=== PATIENT | male | born 1995 | race Caucasian/White ===

== ENCOUNTER 2023-05-19 16:51 | Emergency (ER) | payer BC, SELFPAY ==
[2023-05-19] VITALS (8 sets, daily range): BP systolic 116–135; BP diastolic 70–84; PULSE 64–77; RESP 14–18; TEMP 36.7–36.9; O2SAT 93–96; BMI 19.6
--- NOTE | 2023-05-19 17:14 | DI.RAD.S_ITS ---
PROCEDURE: XR CHEST 1V INDICATIONS: Shortness of breath TECHNIQUE: One view of the chest was acquired. COMPARISON: None. FINDINGS: Surgical changes and devices: Partially evaluated lower cervical spinal hardware. Lungs and pleura: Lungs are clear. No pleural effusions or pneumothorax. Mediastinum: Mediastinal contours appear normal. Heart size is normal. Bones and chest wall: No suspicious bony lesions. Overlying soft tissues appear unremarkable. IMPRESSION: No acute cardiopulmonary abnormality is seen. Dictated by: Evi Sanches M.D. on 05/19/2023 at 18:08 Approved by: Evi Sanches M.D. on 05/19/2023 at 18:09
[2023-05-19 18:43] LABS: Add Manual Diff / Slide Review NO; Basophils Absolute Auto 100 /uL (0-100); Basophils Percent Auto 0.8 % (0-2); Eosinophils Absolute Auto 100 /uL (0-450); Eosinophils Percent Auto 1.3 % (2-4); Hematocrit 27.2 % (41-53); Hemoglobin 9.2 g/dL (13.5-17.5); Lymphocytes Absolute Auto 1700 /uL (1100-4500); Lymphocytes Percent Auto 15.1 % (25-40); Mean Corpuscular HGB Conc 33.7 % (30-36); Mean Corpuscular Hemoglobin 29.5 PG (26-34); Mean Corpuscular Volume 87.7 fL (80-100); Monocytes Absolute Auto 1100 /uL (0-900); Monocytes Percent Auto 9.4 % (3-14); Neutrophils Absolute Auto 8400 /uL (1500-7000); Neutrophils Percent Auto 73.4 % (50-75); Platelet Count 231 X10^3/uL (150-400); Red Blood Cell Count 3.11 X10^6/uL (4.5-5.9); Red Cell Distribution Width 15.1 % (11.6-14.8); White Blood Cell Count 11.5 X10^3/uL (4.5-11.0)
[2023-05-19 18:54] LABS: Lactate (Lactic Acid) 0.8 mmol/L (0.7-2.1)
[2023-05-19 18:56] LABS: Alanine Aminotransferase 87 IU/L (<50); Albumin 4.1 g/dL (3.5-5.0); Albumin Globulin Ratio 1.1 (1.0-2.8); Alkaline Phosphatase 85 U/L (38-126); Aspartate Aminotransferase 42 IU/L (17-59); BUN Creatinine Ratio 87.1 (6-22); Bilirubin Total 0.8 mg/dL (0.2-1.3); Blood Urea Nitrogen 27 mg/dL (9-20); Calcium 10.9 mg/dL (8.4-10.2); Carbon Dioxide 29 mmol/L (22-32); Chloride 98 mmol/L (98-107); Estimated Glomerular Filt Rate > 60 mL/min (>60); Globulin 3.6 g/dL (1.7-4.1); Glucose 87 mg/dL (70-100); HEMOLYSIS < 15 (0-50); Potassium 4.2 mmol/L (3.4-5.1); Sodium 135 mmol/L (137-145); Total Protein 7.7 g/dL (6.3-8.2)
[2023-05-19 19:11] LABS: Adenovirus Not Detected (Not Detect); B. parapertussis Not Detected (Not Detecte); Bordetella pertussis Not Detected (Not Detect); Chlamydophila pneumoniae Not Detected (Not Detect); Coronavirus 229E Not Detected (Not Detect); Coronavirus HKU1 Not Detected (Not Detect); Coronavirus NL 63 Not Detected (Not Detect); Coronavirus OC43 Not Detected (Not Detect); Human Metapneumovirus Not Detected (Not Detect); Human Rhinovirus/Enterovirus Not Detected (Not Detect); Influenza A Not Detected (Not Detect); Influenza B Not Detected (Not Detect); Mycoplasma pneumoniae Not Detected (Not Detect); Parainfluenza Virus 1 Not Detected (Not Detect); Parainfluenza Virus 2 Not Detected (Not Detect); Parainfluenza Virus 3 Not Detected (Not Detect); Parainfluenza Virus 4 Not Detected (Not Detect); Respiratory Syncytial Virus Not Detected (Not Detect); SARS- CoV-2 Not Detected (Not Detecte)
[2023-05-19] MEDS: cefUROXime 250 MG TABLET 500 MG PO (21:18)
--- NOTE | 2023-05-20 01:26 | ED_ITS ---
HPI - SOB/Dyspnea General Chief Complaint: Shortness of Breath/Dyspnea Stated Complaint: pos pneumonia T-5 SOB Time Seen by Provider: 05/19/23 17:22 Source: patient Mode of arrival: Wheelchair Limitations: physical limitation History of Present Illness HPI Narrative: The patient is a 20-year-old male with a history of traumatic paraplegia for spinal cord injury in anticoagulated for previous pulmonary embolism who is here with about 5 days of fevers chills increased sputum production and cough. He also reports feeling short of breath. He is not had any vomiting, family is concerned about the possibility of aspiration, his mother is present and contributes to the history. Has an indwelling catheter, is not having abdominal pain no changes in bowel habits. Had a low-grade fever of about 101 this morning. Has had increased sputum production with change in sputum color becoming dark. He is also reporting a sore throat although he described it as mild. Related Data Home Medications Medication Instructions Recorded Confirmed CA PANTOTHENATE/FOLIC ACID/VIT 1 tab PO Q DAY ##0 07/16/11 (MULTIVITAMIN) cetirizine 10 mg tablet 10 mg PO Q DAY PRN ##0 07/16/11 Previous Rx's Medication Instructions Recorded cefuroxime axetil 500 mg tablet 500 mg PO BID #10 tabs 05/19/23 Allergies Allergy/AdvReac Type Severity Reaction Status Date / Time PENICILLIN Allergy Mild FAMILY HAS Uncoded 09/07/17 13:06 PCN ALLERGY, UNKNOWN IF PT. DOES Exam Initial Vital Signs Initial Vital Signs: Vital Signs Temperature 98.0 F 05/19/23 16:59 Pulse Rate 72 05/19/23 16:59 Respiratory Rate 14 05/19/23 16:59 Blood Pressure 116/70 05/19/23 16:59 Pulse Oximetry 95 05/19/23 16:59 Oxygen Delivery Method Room Air 05/19/23 16:59 Const Other: Young thin male with quadriplegia, seated in a wheelchair he has significant upper and lower extremity muscle wasting Deluca catheter in place draining rodney colored urine. He is alert oriented and in no distress. HENMT Head: normocephalic and atraumatic Neck Neck: supple and No lymphadenopathy Other: Voice is normal. Resp Other: Patient appears to have diaphragmatic paralysis secondary to spinal cord injury, inspiratory effort appears to be adequate. Has coarse breath sounds bilaterally no wheezes breath sounds are equal bilaterally Cardio Rate: regular rate Rhythm: regular rhythm Heart Sounds: S1 normal, S2 normal and no murmurs Skin General: dry skin and warm Neuro Other: Alert and oriented, upper extremity weakness and muscle wasting consistent with his previous spinal cord injury lower extremities are paralyzed Course Orders Ordered: ED Orders 05/19/23 17:14 XR chest 1V Stat Measure peak expiratory flow ONCE RT Consult Eval and Treat NOW 05/19/23 18:22 Respiratory Panel (Film Array) Stat 05/19/23 18:30 Complete Blood Count AUTO DIFF Stat Comprehensive Metabolic Panel Stat Lactate (Lactic Acid) Stat Discontinued Medications Cefuroxime Axetil (Cefuroxime 250 Mg Tablet) 500 mg PO NOW ONE Stop: 05/19/23 21:10 Last Admin: 05/19/23 21:18 Dose: 500 mg Documented By: STEVE Vital Signs Vital signs: Vital Signs - 8 hr 05/19/23 18:09 05/19/23 18:30 05/19/23 19:00 Temperature Pulse Rate 69 65 77 Respiratory Rate Blood Pressure Pulse Oximetry 95 93 95 05/19/23 19:30 05/19/23 20:00 05/19/23 20:30 Temperature Pulse Rate 69 64 71 Respiratory Rate 18 Blood Pressure Pulse Oximetry 96 96 96 05/19/23 21:00 Temperature 98.5 F Pulse Rate 75 Respiratory Rate 18 Blood Pressure 135/84 Pulse Oximetry 94 MDM - SOB/Dyspnea Lab Data Lab results narrative: CBC shows a minimal elevation of WBC at 11.5. Chemistries are unremarkable, lactic is normal. 05/19/23 18:30 05/19/23 18:30 Labs: Lab Results 05/19/23 05/19/23 Range/Units 18:22 18:30 WBC 11.5 H (4.5-11.0) X10^3/uL RBC 3.11 L (4.5-5.9) X10^6/uL Hgb 9.2 L (13.5-17.5) g/dL Hct 27.2 L (41-53) % MCV 87.7 (80-100) fL MCH 29.5 (26-34) PG MCHC 33.7 (30-36) % RDW 15.1 H (11.6-14.8) % Plt Count 231 (150-400) X10^3/uL Neut % (Auto) 73.4 (50-75) % Lymph % (Auto) 15.1 L (25-40) % [place] % (Auto) 9.4 (3-14) % Eos % (Auto) 1.3 L (2-4) % Baso % (Auto) 0.8 (0-2) % Neut # (Auto) 8400 H (2780-8756) /uL Lymph # (Auto) 1700 (1819-7024) /uL [place] # (Auto) 1100 H (0-900) /uL Eos # (Auto) 100 (0-450) /uL Baso # (Auto) 100 (0-100) /uL Sodium 135 L (137-145) mmol/L Potassium 4.2 (3.4-5.1) mmol/L Chloride 98 (98-107) mmol/L Carbon Dioxide 29 (22-32) mmol/L BUN 27 H (9-20) mg/dL Creatinine 0.31 L (0.66-1.25) mg/dL Estimated GFR > 60 (>60) mL/min BUN/Creatinine Ratio 87.1 H (6-22) Glucose 87 (70-100) mg/dL Lactate 0.8 (0.7-2.1) mmol/L Calcium 10.9 H (8.4-10.2) mg/dL Total Bilirubin 0.8 (0.2-1.3) mg/dL AST 42 (17-59) IU/L ALT 87 H (<50) IU/L Alkaline Phosphatase 85 (38-126) U/L Troponin I Cancelled NT-Pro-B Natriuret Pep Cancelled Total Protein 7.7 (6.3-8.2) g/dL Albumin 4.1 (3.5-5.0) g/dL Globulin 3.6 (1.7-4.1) g/dL Albumin/Globulin Ratio 1.1 (1.0-2.8) Chlamy pneumoniae PCR Not detected (Not Detect) Adenovirus (PCR) Not detected (Not Detect) B.parapertussis DNA PCR Not detected (Not Detecte) Coronavirus OC43 (PCR) Not detected (Not Detect) Coronavirus HKU1 (PCR) Not detected (Not Detect) Coronavirus 229E (PCR) Not detected (Not Detect) SARS-CoV-2 (PCR) Not detected (Not Detecte) Coronavirus NL63 (PCR) Not detected (Not Detect) Human Metapneumovir PCR Not detected (Not Detect) Influenza Type A (PCR) Not detected (Not Detect) Influenza Type B (PCR) Not detected (Not Detect) M. pneumoniae (PCR) Not detected (Not Detect) Parainfluenza 1 (PCR) Not detected (Not Detect) Parainfluenza 2 (PCR) Not detected (Not Detect) Parainfluenza 3 (PCR) Not detected (Not Detect) Parainfluenza 4 (PCR) Not detected (Not Detect) RSV (PCR) Not detected (Not Detect) Entero/Rhino (PCR) Not detected (Not Detect) Imaging Data Chest x-ray: My Impression: No acute infiltrate on my independent review of chest x-ray Radiologist's Impression: IMPRESSION: No acute cardiopulmonary abnormality is seen. MDM Narrative Medical decision making narrative: 20-year-old male with a history of spinal cord injury and subsequently quadriplegia. He is here with a low-grade fever, and respiratory symptoms. Differential includes pneumonia, bacterial versus viral, I considered the possibility of pulmonary embolism however he is anticoagulated and has clear infectious symptoms. He is not hypoxic or tachycardic. It does not appear to be septic. Urinary tract infection is possible he has an indwelling catheter however not having abdominal discomfort and urine appeared clear. There does not appear to be a viral etiology, given his increased sputum production recently in changes sputum color I did cover him with oral cefuroxime. Discharge Plan Departure Patient Disposition: Home Clinical Impression: Bronchitis Activity Restrictions/Additional Instructions: I am prescribing antibiotics today for a respiratory infection without a pneumonia seen on chest x-ray. Continue other previous home medications. Give the prescribed cefuroxime twice daily for 5 days. If having increasing shortness of breath frequent vomiting or other acute symptoms recheck in the emergency department. Follow up soon with primary care provider. Prescriptions: New cefuroxime axetil 500 mg tablet 500 mg PO BID Qty: 10 0RF No Action cetirizine 10 MG tablet 10 mg PO Q DAY PRNQty: 0 CA PANTOTHENATE/FOLIC ACID/VIT (MULTIVITAMIN) 1 tab PO Q DAY Qty: 0 Referrals: Jose J Lanza ARNP [Primary Care Provider] - Stand Alone Forms: Patient Portal/API
== END 2023-05-19 21:35 | disposition home or self-care (01) ==
PROVIDERS: Emergency Medicine; Emergency Provider Emergency Medicine; Family Provider Nurse Practitioner; PCP Nurse Practitioner
DX: J40 Bronchitis, not specified as acute or chronic (principal)
CPT/HCPCS: 71045; 80053; 83605; 85025; 87633; 99283; 99284

== ENCOUNTER 2023-06-12 17:17 | Inpatient (IN) | payer BC, SELFPAY ==
[2023-06-12] VITALS (13 sets, daily range): BP systolic 76–121; BP diastolic 36–64; PULSE 88–119; RESP 18–39; TEMP 36.8–37.1; O2SAT 87–97; BMI 19.0
--- NOTE | 2023-06-12 17:27 | DI.RAD.S_ITS ---
PROCEDURE: XR CHEST 1V INDICATIONS: SOB TECHNIQUE: One view of the chest was acquired. COMPARISON: [facility], CR, XR CHEST 1V, 05/19/2023, 17:33. FINDINGS: Surgical changes and devices: None. Lungs and pleura: Right lower lobe opacity. No pleural effusion. No pneumothorax. Mediastinum: Mediastinal contours appear normal. Heart size is normal. Bones and chest wall: No suspicious bony lesions. Overlying soft tissues appear unremarkable. IMPRESSION: Right lower lobe opacity concerning for infection. Dictated by: Ra Bennett M.D. on 06/12/2023 at 17:29 Approved by: Ra Bennett M.D. on 06/12/2023 at 17:35
--- NOTE | 2023-06-12 17:50 | PC.NURSE ---
Pt arrives in electric wheelchair and was assisted into a ER gurney by using a nikkie lift. Pt's mom Aissatou at bedside and assisted with moving pt using nikkie lift and pad. Pt states he feels better when he is laying back in a 30 degree angle. He reports difficulty breathing, heart palpitations, fevers, and coughing with sputum production. Pt also concerned for bladder spasms the past week and being scheduled with his urologist for kidney stone removal. Pt
--- NOTE | 2023-06-12 18:00 | ED_ITS ---
HPI - SOB/Dyspnea General Chief Complaint: Shortness of Breath/Dyspnea Stated Complaint: LOW OXYGEN, HIGH PULSE, FEVER, Time Seen by Provider: 06/12/23 17:26 Source: patient and family Mode of arrival: Wheelchair Limitations: physical limitation History of Present Illness HPI Narrative: Patient is a 28-year-old male history of quadriplegia C4-C5 level secondary to trauma spinal cord injury, on Eliquis for prior pulmonary embolism presents today with increasing shortness of breath. He reports that he was okay last night but maybe did not feel great. Today around 2:00 a.m. while sitting in his chair he had some difficulty breathing. It was little bit better when he laid down. They monitor his oxygen as needed both mom and patient report that his oxygen level went into the 80s for about 5 minutes and then came up. He does have some sputum and secretions. He is NPO and has a PEG tube. He takes Tylenol around the clock they have not noted any fever. No nausea or vomiting. He is not having any chest pain now. He feels like he is doing better than he was earlier. Related Data Home Medications Medication Instructions Recorded Confirmed CA PANTOTHENATE/FOLIC ACID/VIT 1 tab PO Q DAY ##0 07/16/11 (MULTIVITAMIN) cetirizine 10 mg tablet 10 mg PO Q DAY PRN ##0 07/16/11 Previous Rx's Medication Instructions Recorded cefuroxime axetil 500 mg tablet 500 mg PO BID #10 tabs 05/19/23 Allergies Allergy/AdvReac Type Severity Reaction Status Date / Time amoxicillin Allergy Hives Verified 06/12/23 18:37 vancomycin AdvReac Mild Rash: Pt Verified 06/12/23 18:40 states he can tolerate vancomycin... See Comment PENICILLIN Allergy Mild FAMILY HAS Uncoded 09/07/17 13:06 PCN ALLERGY, UNKNOWN IF PT. DOES Patient History Social History Smoking Status: Unknown if ever smoked Smoking Status: Unknown if ever smoked alcohol intake frequency: other Substance Use Type: does not use Exam Initial Vital Signs Initial Vital Signs: Vital Signs Pulse Rate 94 H 06/12/23 17:38 Blood Pressure 108/61 06/12/23 17:38 Pulse Oximetry 92 06/12/23 17:38 GENERAL: 28-year-old male appears slightly pale no respiratory distress HEENT: Head atraumatic,EOMI, pupils reactive, face symmetric, moist mucous membranes CARDIOVASCULAR: Regular rate and rhythm without murmurs, rubs or gallops. RESPIRATORY: Breath sounds equal bilaterally, no wheezes rales or rhonchi. ABDOMEN: Soft, nontender. Normoactive bowel sounds all 4 quadrants. No guarding or rebound. Peg tube in place : Deluca catheter in place EXTREMITIES: Normal range of motion, no clubbing or edema. Neurovascularly intact NEUROLOGICAL: Alert and oriented x4. At baseline SKIN: Warm, dry, no laceration, no petechiae, no rashes or lesions. Course Orders Ordered: ED Orders 06/12/23 17:27 XR chest 1V Stat RT Consult Eval and Treat Now 06/12/23 17:52 Complete Blood Count AUTO DIFF Stat Comprehensive Metabolic Panel Stat Lactate (Lactic Acid) Stat Lipase Stat NT-proBNP (BNP-Adult 18+) Stat 06/12/23 17:58 Respiratory Panel (Film Array) Stat 06/12/23 18:10 Sputum Culture Stat 06/12/23 18:20 Blood Culture Stat 06/12/23 19:27 Urine Culture Stat Urine Microscopic Stat Enoxaparin Sodium (Enoxaparin 40 Mg/0.4 Ml Syringe) 40 mg SUBCUT DAILY AMELIA Ceftriaxone Sodium 1,000 mg/ (Sodium Chloride) 100 mls @ 200 mls/hr IV Q24H AMELIA Metronidazole (Flagyl) 500 mg in 100 mls @ 100 mls/hr IV Q8H AMELIA Naloxone HCl (Naloxone 0.4 Mg/Ml Vial) 0.2 mg IV Q2MIN PRN PRN Reason: Opiate Reversal Ondansetron HCl (Ondansetron 4 Mg/2 Ml Inj) 4 mg IV Q8HR PRN PRN Reason: Nausea And Vomiting Discontinued Medications Albuterol/Ipratropium (Albuterol/Ipratropium 3 Ml Ampul) 3 ml INH NOW ONE Stop: 06/12/23 18:16 Last Admin: 06/12/23 18:19 Dose: 3 ml Documented By: TIFFANI Ceftriaxone Sodium 2,000 mg/ (Sodium Chloride) 100 mls @ 200 mls/hr IV NOW ONE Stop: 06/12/23 18:59 Metronidazole (Flagyl) 500 mg in 100 mls @ 100 mls/hr IV NOW ONE Stop: 06/12/23 19:57 Sodium Chloride (Normal Saline 0.9%) 1,000 mls @ 1,000 mls/hr IV BOLUS ONE Stop: 06/12/23 20:05 Last Infusion: 06/12/23 20:30 Dose: Infused Documented By: Admin: 06/12/23 19:09 Dose: 1,000 mls/hr Documented By: FARSHAD Ceftriaxone Sodium 2,000 mg/ (Sodium Chloride) 100 mls @ 200 mls/hr IV NOW ONE Stop: 06/12/23 19:07 Last Infusion: 06/12/23 19:49 Dose: Infused Documented By: Admin: 06/12/23 19:29 Dose: 200 mls/hr Documented By: FARSHAD Metronidazole (Flagyl) 500 mg in 100 mls @ 100 mls/hr IV NOW ONE Stop: 06/12/23 20:05 Last Infusion: 06/12/23 20:10 Dose: Infused Documented By: Admin: 06/12/23 19:32 Dose: 100 mls/hr Documented By: FARSHAD Vital Signs Vital signs: Vital Signs - 8 hr 06/12/23 17:38 06/12/23 17:38 06/12/23 17:47 Temperature 98.7 F Pulse Rate 94 H 95 H Respiratory Rate 18 Blood Pressure 108/61 104/56 L Pulse Oximetry 92 93 Oxygen Delivery Method Room Air 06/12/23 18:00 06/12/23 18:00 06/12/23 18:30 Temperature Pulse Rate 93 H 88 Respiratory Rate Blood Pressure 110/62 Pulse Oximetry 93 97 Oxygen Delivery Method Room Air 06/12/23 18:30 06/12/23 19:00 06/12/23 19:00 Temperature Pulse Rate 106 H Respiratory Rate Blood Pressure 113/58 L 113/55 L Pulse Oximetry 91 Oxygen Delivery Method 06/12/23 19:30 06/12/23 19:30 06/12/23 19:34 Temperature Pulse Rate 101 H 119 H Respiratory Rate Blood Pressure 119/56 L Pulse Oximetry 93 92 Oxygen Delivery Method Room Air 06/12/23 19:34 06/12/23 19:37 06/12/23 19:37 Temperature Pulse Rate 115 H Respiratory Rate Blood Pressure 76/36 L 81/40 L Pulse Oximetry 87 L Oxygen Delivery Method 06/12/23 19:40 06/12/23 19:40 06/12/23 20:00 Temperature Pulse Rate 114 H 99 H Respiratory Rate 39 H 18 Blood Pressure 94/48 L 94/48 L Pulse Oximetry 91 91 Oxygen Delivery Method 06/12/23 20:00 06/12/23 20:30 06/12/23 20:30 Temperature Pulse Rate 98 H Respiratory Rate 23 Blood Pressure 107/56 L 121/64 Pulse Oximetry 93 94 Oxygen Delivery Method Room Air MDM - SOB/Dyspnea Lab Data 06/12/23 17:52 06/12/23 17:52 Labs: Lab Results 06/12/23 06/12/23 06/12/23 Range/Units 17:52 17:58 19:27 WBC 17.4 H (4.5-11.0) X10^3/uL RBC 3.55 L (4.5-5.9) X10^6/uL Hgb 10.5 L (13.5-17.5) g/dL Hct 31.4 L (41-53) % MCV 88.5 (80-100) fL MCH 29.7 (26-34) PG MCHC 33.6 (30-36) % RDW 14.4 (11.6-14.8) % Plt Count 155 (150-400) X10^3/uL Neut % (Auto) 81.8 H (50-75) % Lymph % (Auto) 6.8 L (25-40) % [place] % (Auto) 10.7 (3-14) % Eos % (Auto) 0.2 L (2-4) % Baso % (Auto) 0.5 (0-2) % Neut # (Auto) 42698 H (1377-3980) /uL Lymph # (Auto) 1200 (6285-7027) /uL [place] # (Auto) 1900 H (0-900) /uL Eos # (Auto) 0 (0-450) /uL Baso # (Auto) 100 (0-100) /uL Sodium 135 L (137-145) mmol/L Potassium 4.0 (3.4-5.1) mmol/L Chloride 99 (98-107) mmol/L Carbon Dioxide 26 (22-32) mmol/L BUN 28 H (9-20) mg/dL Creatinine 0.37 L (0.66-1.25) mg/dL Estimated GFR > 60 (>60) mL/min BUN/Creatinine Ratio 75.7 H (6-22) Glucose 100 (70-100) mg/dL Lactate 1.0 (0.7-2.1) mmol/L Calcium 11.3 H (8.4-10.2) mg/dL Total Bilirubin 0.7 (0.2-1.3) mg/dL AST 51 (17-59) IU/L ALT 157 H (<50) IU/L Alkaline Phosphatase 92 (38-126) U/L NT-Pro-B Natriuret Pep 85 (<125) pg/mL Total Protein 8.6 H (6.3-8.2) g/dL Albumin 4.6 (3.5-5.0) g/dL Globulin 4.0 (1.7-4.1) g/dL Albumin/Globulin Ratio 1.2 (1.0-2.8) Lipase 56 (23-300) U/L Urine RBC 30-100/hpf H (0-5/HPF) Urine WBC 5-10/hpf H (0-5/HPF) Ur Squamous Epith Cells None seen (0-5/HPF) Amorphous Sediment 2+ Urine Bacteria Moderate (10-30) H (None) Ur Culture Indicated? Specimen cultured Chlamy pneumoniae PCR Not detected (Not Detect) Adenovirus (PCR) Not detected (Not Detect) B.parapertussis DNA PCR Not detected (Not Detecte) Coronavirus OC43 (PCR) Not detected (Not Detect) Coronavirus HKU1 (PCR) Not detected (Not Detect) Coronavirus 229E (PCR) Not detected (Not Detect) SARS-CoV-2 (PCR) Not detected (Not Detecte) Coronavirus NL63 (PCR) Not detected (Not Detect) Human Metapneumovir PCR Not detected (Not Detect) Influenza Type A (PCR) Not detected (Not Detect) Influenza Type B (PCR) Not detected (Not Detect) M. pneumoniae (PCR) Not detected (Not Detect) Parainfluenza 1 (PCR) Not detected (Not Detect) Parainfluenza 2 (PCR) Not detected (Not Detect) Parainfluenza 3 (PCR) Not detected (Not Detect) Parainfluenza 4 (PCR) Not detected (Not Detect) RSV (PCR) Not detected (Not Detect) Entero/Rhino (PCR) Not detected (Not Detect) Urine Dip Bedside Urine Glucose Negative Bedside Urine Bilirubin - Negative Bedside Urine Ketone - Negative Urine Specific [place] 1.015 Bedside Urine Occult Blood +++ Bedside Urine pH 7.0 Bedside Urine Protein +/- 15 Bedside Urine Urobilinogen - Negative Bedside Urine Nitrite - Negative Bedside Urine Leukocytes +++ 500 Esterase Imaging Data Chest x-ray: Radiologist's Impression: PROCEDURE: XR CHEST 1V INDICATIONS: SOB TECHNIQUE: One view of the chest was acquired. COMPARISON: [facility], , XR CHEST 1V, 05/19/2023, 17:33. FINDINGS: Surgical changes and devices: None. Lungs and pleura: Right lower lobe opacity. No pleural effusion. No pneumothorax. Mediastinum: Mediastinal contours appear normal. Heart size is normal. Bones and chest wall: No suspicious bony lesions. Overlying soft tissues appear unremarkable. IMPRESSION: Right lower lobe opacity concerning for infection. Dictated by: Ra Bennett M.D. on 06/12/2023 at 17:29 MDM Narrative Medical decision making narrative: Patient 28-year-old male quadriplegic after traumatic injury presenting today with increased difficulty breathing. He started taking in liquids a couple tbsp at a time. He gets most of his nutrition through the PEG tube. He does have a very weak cough and uses a cough assist. Today felt like his oxygen decreased they do have an oxygen concentrator home which they never used but needed to use it today. Blood work has been: Leukocytosis 17.4 with left shift, sodium 135 BUN 28 creatinine 0.7,. Bilirubin 0.7, AST 51, ALT 157, lipase 66, respiratory panel negative, lactate 1.0 X-ray imaging reviewed right lower lobe pneumonia Patient coughed up copious amount of green productive sputum that was sent down for culture. There is concern for pneumonia based on history chest x-ray and white count. He is afebrile. He reports his heart rate is normally in the 50s to 60s he remains tachycardic 90s to 110 in the ED. oxygen level is lower than normal for him. He has oxygen level 91 to 93% he does go down into 80s at times not really requiring oxygen support. His blood pressure did drop briefly but he was being repositioned it quickly came back in to normal range. He is covered with Rocephin in Flagyl for aspiration pneumonia. He did get a little flushed in the face after the Rocephin. He has no difficulty swallowing no other hives. It does have an allergic reaction to penicillin which causes hives. He previously tolerated cefuroxime without any difficulty. Dr. Winters accepts patient. qSOFA (Quick SOFA) Score for Sepsis from [email or web address] on 06/12/2023 All calculations should be rechecked by clinician prior to use RESULT SUMMARY: 2 points qSOFA Score High risk qSOFA Scores 2-3 are associated with a 3- to 14-fold increase in in-hospital mortality. Assess for evidence of organ dysfunction with blood testing including serum lactate and calculation of the full SOFA Score. Patients meeting these qSOFA criteria should have infection considered even if it was previously not. INPUTS: Altered mental status ?> 0 = No Respiratory rate >=2 ?> 1 = Yes Systolic BP <=00 ?> 1 = Yes Discharge Plan Departure Patient Disposition: Admitted As Inpatient Clinical Impression: Aspiration pneumonia Admit Date/Time: 06/12/23 20:49 Admit Provider: Ruiz Goyal
[2023-06-12 18:15] LABS: Alanine Aminotransferase 157 IU/L (<50); Albumin 4.6 g/dL (3.5-5.0); Albumin Globulin Ratio 1.2 (1.0-2.8); Alkaline Phosphatase 92 U/L (38-126); Aspartate Aminotransferase 51 IU/L (17-59); BUN Creatinine Ratio 75.7 (6-22); Bilirubin Total 0.7 mg/dL (0.2-1.3); Blood Urea Nitrogen 28 mg/dL (9-20); Calcium 11.3 mg/dL (8.4-10.2); Carbon Dioxide 26 mmol/L (22-32); Chloride 99 mmol/L (98-107); Estimated Glomerular Filt Rate > 60 mL/min (>60); Glucose 100 mg/dL (70-100); HEMOLYSIS < 15 (0-50); Lipase 56 U/L (23-300); Sodium 135 mmol/L (137-145); Total Protein 8.6 g/dL (6.3-8.2)
[2023-06-12 18:17] LABS: Add Manual Diff / Slide Review NO; Basophils Absolute Auto 100 /uL (0-100); Basophils Percent Auto 0.5 % (0-2); Eosinophils Absolute Auto 0 /uL (0-450); Eosinophils Percent Auto 0.2 % (2-4); Hematocrit 31.4 % (41-53); Hemoglobin 10.5 g/dL (13.5-17.5); Lymphocytes Absolute Auto 1200 /uL (1100-4500); Lymphocytes Percent Auto 6.8 % (25-40); Mean Corpuscular HGB Conc 33.6 % (30-36); Mean Corpuscular Hemoglobin 29.7 PG (26-34); Mean Corpuscular Volume 88.5 fL (80-100); Monocytes Absolute Auto 1900 /uL (0-900); Monocytes Percent Auto 10.7 % (3-14); Neutrophils Absolute Auto 14200 /uL (1500-7000); Neutrophils Percent Auto 81.8 % (50-75); Platelet Count 155 X10^3/uL (150-400); Red Blood Cell Count 3.55 X10^6/uL (4.5-5.9); Red Cell Distribution Width 14.4 % (11.6-14.8); White Blood Cell Count 17.4 X10^3/uL (4.5-11.0)
[2023-06-12] MEDS: ALBUTEROL/IPRATROPIUM 3 ML AMPUL INH (18:19)
--- NOTE | 2023-06-12 18:19 | PC.NURSE ---
Patient and his mom present due to sudden onset of shortness of breath around 1400 today after being repositioned from laying in bed up to Pt's electric wheelchair. Pt reports feeling better when laying down (30degrees) and is feeling better now after being placed in the ER [place]. Pt had a 35ft fall in december of 2022 resulting in quadriplegia and was seen at [facility]. History of trachea placement and pt is attempting to avoid being placed back on trachea. He is NPO status and receiving tube feedings. Hx of aspiriations since trachea removed. Pt reports no new pain, but takes pain medications at home for chronic neck and generalized pain that he rates a 5/10. Pt right hand dominant but has little use over upper extremities. Pt denies any skin wounds, denies chest pain or dizziness.
[2023-06-12 18:23] LABS: NT-proBNP (BNP-Adult 18+) 85 pg/mL (<125)
[2023-06-12 18:57] LABS: Adenovirus Not Detected (Not Detect); B. parapertussis Not Detected (Not Detecte); Bordetella pertussis Not Detected (Not Detect); Chlamydophila pneumoniae Not Detected (Not Detect); Coronavirus 229E Not Detected (Not Detect); Coronavirus HKU1 Not Detected (Not Detect); Coronavirus NL 63 Not Detected (Not Detect); Coronavirus OC43 Not Detected (Not Detect); Human Metapneumovirus Not Detected (Not Detect); Human Rhinovirus/Enterovirus Not Detected (Not Detect); Influenza A Not Detected (Not Detect); Influenza B Not Detected (Not Detect); Mycoplasma pneumoniae Not Detected (Not Detect); Parainfluenza Virus 1 Not Detected (Not Detect); Parainfluenza Virus 2 Not Detected (Not Detect); Parainfluenza Virus 3 Not Detected (Not Detect); Parainfluenza Virus 4 Not Detected (Not Detect); Respiratory Syncytial Virus Not Detected (Not Detect); SARS- CoV-2 Not Detected (Not Detecte)
[2023-06-12] MEDS: SODIUM CHLORIDE 0.9% 1,000 ML 1000 ML IV (19:09)
[2023-06-12] MEDS: cefTRIAXone 2,000 MG in SODIUM CHLORIDE 0.9% 100 ML 200 MG IV (19:29)
[2023-06-12] MEDS: metroNIDAZOLE 500 MG/100 ML PIGGYBACK 100 MG IV (19:32)
--- NOTE | 2023-06-12 19:32 | PC.NURSE ---
Urine sample obtained from patients catheter port and sent for micro. Pt's catheter bag was reconnected after sample obtained.
[2023-06-12 20:00] LABS: RBC Urine 30-100/HPF (0-5/HPF)
[2023-06-12 20:01] LABS: Amorphous Sediment Urine 2+; Bacteria Urine Moderate (10-30); Culture Indicated Urine Specimen Cultured; Squamous Epithelial Cell Urine None Seen (0-5/HPF); WBC Urine 5-10/HPF (0-5/HPF)
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
--- NOTE | 2023-06-12 22:52 | PC.NURSE ---
admit pt to AC from ER. VSS. pt alert and oriented; accompanied by supportive mom. Arrived with leg bag lam, changed to large collection bag. Pt able to move hands though has very weak roustabout; unable to hold pen, cutlery, etc. Can move arms up to almost shoulder height. HOB @ 30 degrees with bedside suction set up. Pt has soft touch call light and instructed on use. Continuous O2 monitor on. Waffle cushion and foam boots in place. Pt denies discomfort currently but states does take pain medication for neck and shoulder pain. Primary RN has messaged NOC tele doc that pt is arrived and ready to be seen.
[2023-06-12] MEDS: methocarbamoL 500 MG TABLET 1000 MG PO (23:59)
[2023-06-12] MEDS: HYDROCODONE/ACET 10/325 TABLET 1 TAB PO (23:59)
[2023-06-12] MEDS: PREGABALIN 50 MG CAPSULE 200 MG PO (23:59)
[2023-06-13] MEDS: ACETAMINOPHEN 325 MG TABLET PO
[2023-06-13] MEDS: MIDODRINE HCL 5 MG TABLET PO ×2 (00:42→09:21)
[2023-06-13] MEDS: OXYBUTYNIN 5 MG TABLET PO ×2 (00:42→09:20)
[2023-06-13] MEDS: SENNOSIDES 8.6 MG TABLET TUBE ×2 (00:43→09:21)
--- NOTE | 2023-06-13 01:51 | PC.NURSE ---
shift supervisor film processing: Patient arrived from the ED at approximately 2130. Patient is AxOx4, VSS, O2 saturation 94% on RA. Patient denies difficulty breathing or SOB currently. Intermittent cough present producing phlegm, suction in place. Lungs are CTA, slightly diminished in RLL. Denies chest pain, although states he has mild chest tightness, MD Winters aware. Denies nausea. Patient came in with lam, catheter is patent and draining clear, yellow urine. Family is assisting with tube feedings per home regimen through peg tube. Complaints of 6/10 neck & generalized pain, medicated as ordered. Medications crushed & pushed through peg tube. Heel cushions in place, Q2 turning. Viktoria lift assist d/t hx of quadraplegia (C4-C5). Oriented patient & family to room and call-light, will continue to monitor.
[2023-06-13] MEDS: metroNIDAZOLE 500 MG/100 ML PIGGYBACK 100 MG IV ×2 (03:03→12:11)
[2023-06-13] MEDS: methocarbamoL 500 MG TABLET 1000 MG PO (05:33)
[2023-06-13] MEDS: ACETAMINOPHEN SUSP 650 MG/20.3 ML UDC 325 MG TUBE ×2 (05:33→12:09)
[2023-06-13 05:37] VITALS: BP 123/62; PULSE 63; RESP 16; TEMP 37.1; O2SAT 96
[2023-06-13] MEDS: HYDROCODONE/ACET 10/325 TABLET 1 TAB PO (05:41)
[2023-06-13 08:22] VITALS: BP 113/55; PULSE 84; RESP 16; TEMP 36.9; O2SAT 96
[2023-06-13 08:42] LABS: Add Manual Diff / Slide Review NO; Basophils Absolute Auto 100 /uL (0-100); Basophils Percent Auto 0.5 % (0-2); Eosinophils Absolute Auto 100 /uL (0-450); Eosinophils Percent Auto 0.7 % (2-4); Hematocrit 28.2 % (41-53); Hemoglobin 9.5 g/dL (13.5-17.5); Lymphocytes Absolute Auto 1400 /uL (1100-4500); Lymphocytes Percent Auto 12.7 % (25-40); Mean Corpuscular HGB Conc 33.9 % (30-36); Mean Corpuscular Hemoglobin 30.6 PG (26-34); Mean Corpuscular Volume 90.2 fL (80-100); Monocytes Absolute Auto 900 /uL (0-900); Monocytes Percent Auto 8.2 % (3-14); Neutrophils Absolute Auto 8700 /uL (1500-7000); Neutrophils Percent Auto 77.9 % (50-75); Platelet Count 142 X10^3/uL (150-400); Red Blood Cell Count 3.12 X10^6/uL (4.5-5.9); Red Cell Distribution Width 14.1 % (11.6-14.8); White Blood Cell Count 11.2 X10^3/uL (4.5-11.0)
[2023-06-13 08:55] LABS: BUN Creatinine Ratio 66.7 (6-22); Blood Urea Nitrogen 24 mg/dL (9-20); Calcium 9.9 mg/dL (8.4-10.2); Carbon Dioxide 25 mmol/L (22-32); Chloride 104 mmol/L (98-107); Estimated Glomerular Filt Rate > 60 mL/min (>60); Glucose 148 mg/dL (70-100); HEMOLYSIS < 15 (0-50); Potassium 4.1 mmol/L (3.4-5.1); Sodium 137 mmol/L (137-145)
[2023-06-13] MEDS: APIXABAN 5 MG TABLET TUBE ×2 (09:20)
[2023-06-13] MEDS: DULOXETINE 30 MG CAPSULE 60 MG PO (09:21)
[2023-06-13] MEDS: VENLAFAXINE 37.5 MG TABLET 18.75 MG PO (09:21)
[2023-06-13] MEDS: PREGABALIN 50 MG CAPSULE 200 MG PO (09:21)
[2023-06-13 09:39] VITALS: PULSE 61; RESP 18; O2SAT 97
[2023-06-13] MEDS: ALBUTEROL/IPRATROPIUM 3 ML AMPUL INH (09:39)
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
[2023-06-13] MEDS: HYDROCODONE/ACET 10/325 TABLET 1 TAB TUBE (12:09)
[2023-06-13] MEDS: methocarbamoL 500 MG TABLET 1000 MG TUBE (12:10)
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
== END 2023-06-13 14:10 | disposition home or self-care (01) | DRG 871 ==
LOC: ED 20:48 → AC 20:49
PROVIDERS: Emergency Medicine; Admitting Provider Internal Medicine; Emergency Provider Emergency Medicine; Family Provider Nurse Practitioner; PCP Nurse Practitioner; Referring Provider Emergency Medicine; Visit Provider Internal Medicine
DX: A41.9 Sepsis, unspecified organism (principal); G82.52 Quadriplegia, C1-C4 incomplete; J69.0 Pneumonitis due to inhalation of food and vomit; G95.89 Other specified diseases of spinal cord; K59.2 Neurogenic bowel, not elsewhere classified; R13.10 Dysphagia, unspecified; I95.1 Orthostatic hypotension; J45.909 Unspecified asthma, uncomplicated; F32.A Depression, unspecified; Z79.01 Long term (current) use of anticoagulants; Z93.1 Gastrostomy status
CPT/HCPCS: 36415; 71045; 80048; 80053; 81003; 81015; 83605; 83690; 83880; 85025; 87040; 87070; 87077; 87086; 87147; 87186; 87205; 87633; 92610; 94640; 96365; 96368; 99284; 99285; J0696

== ENCOUNTER → 2024-05-10 17:32 | Outpatient (ROUT) | payer BC, SELFPAY ==
[2023-06-12 21:00] VITALS: BMI 19.0
[2024-05-10 18:13] LABS: C-Reactive Protein Quant 2.4 mg/dL (<1.0)
[2024-05-10 19:01] LABS: Erythrocyte Sedimentation Rate 47 MM/HR (0-15)
== END ==
PROVIDERS: Family Provider Nurse Practitioner; PCP Nurse Practitioner; Visit Provider Surgery
DX: Z13.89 Encounter for screening for other disorder (principal)
CPT/HCPCS: 85651; 86140

== ENCOUNTER → 2024-07-20 15:54 | Outpatient (ROUT) | payer BC, SELFPAY ==
[2023-06-12 21:00] VITALS: BMI 19.0
[2024-07-20 16:01] LABS: Add Manual Diff / Slide Review NO; Basophils Absolute Auto 100 /uL (0-100); Basophils Percent Auto 1.3 % (0-2); Eosinophils Absolute Auto 200 /uL (0-450); Eosinophils Percent Auto 2.8 % (2-4); Hematocrit 40.7 % (41-53); Hemoglobin 13.7 g/dL (13.5-17.5); Lymphocytes Absolute Auto 1800 /uL (1100-4500); Lymphocytes Percent Auto 27.1 % (25-40); Mean Corpuscular HGB Conc 33.5 % (30-36); Mean Corpuscular Hemoglobin 30.3 PG (26-34); Mean Corpuscular Volume 90.3 fL (80-100); Monocytes Absolute Auto 500 /uL (0-900); Monocytes Percent Auto 7.7 % (3-14); Neutrophils Absolute Auto 4000 /uL (1500-7000); Neutrophils Percent Auto 61.1 % (50-75); Platelet Count 192 X10^3/uL (150-400); Red Blood Cell Count 4.51 X10^6/uL (4.5-5.9); Red Cell Distribution Width 13.9 % (11.6-14.8); White Blood Cell Count 6.6 X10^3/uL (4.5-11.0)
[2024-07-20 16:07] LABS: Appearance Urine UA SL CLOUDY; Bilirubin Urine UA NEGATIVE (NEGATIVE); Color Urine UA YELLOW; Glucose Urine UA NEGATIVE (Negative); Ketones Urine UA NEGATIVE (NEGATIVE); Leukocyte Esterase Urine UA 2+ (NEGATIVE); Nitrite Urine UA NEGATIVE (Negative); Occult Blood Urine UA NEGATIVE (Negative); Protein Urine UA NEGATIVE (Negative); Urobilinogen Urine UA 0.2 E.U./dL (0.2); pH Urine UA 6.5 (4.5-8.0)
[2024-07-20 16:22] LABS: Erythrocyte Sedimentation Rate 21 MM/HR (0-15)
[2024-07-20 16:28] LABS: Bacteria Urine Few (2-10); Culture Indicated Urine Specimen Cultured; Mucus Urine 1+ (Negative); RBC Urine 0-1/HPF (0-5/HPF); Squamous Epithelial Cell Urine 0-1 /HPF (0-5/HPF); Urine Volume 10mL (spun); WBC Urine 1-5/HPF (0-5/HPF)
[2024-07-20 16:53] LABS: Alanine Aminotransferase 43 IU/L (<50); Albumin 4.5 g/dL (3.5-5.0); Albumin Globulin Ratio 1.5 (1.0-2.8); Alkaline Phosphatase 70 U/L (38-126); Aspartate Aminotransferase 28 IU/L (17-59); BUN Creatinine Ratio 86.1 (6-22); Bilirubin Total 0.4 mg/dL (0.2-1.3); Blood Urea Nitrogen 31 mg/dL (9-20); C-Reactive Protein Quant 0.8 mg/dL (<1.0); Calcium 10.1 mg/dL (8.4-10.2); Carbon Dioxide 26 mmol/L (22-32); Chloride 103 mmol/L (98-107); Estimated Glomerular Filt Rate > 60 mL/min (>60); Glucose 107 mg/dL (70-100); HEMOLYSIS < 15 (0-50); Potassium 4.4 mmol/L (3.4-5.1); Sodium 139 mmol/L (137-145); Total Protein 7.5 g/dL (6.3-8.2)
== END ==
PROVIDERS: Urology; Family Provider Nurse Practitioner; PCP Nurse Practitioner; Visit Provider Internal Medicine Infectious Disease
DX: L89.154 Pressure ulcer of sacral region, stage 4 (principal); M86.60 Other chronic osteomyelitis, unspecified site; N39.0 Urinary tract infection, site not specified
CPT/HCPCS: 80053; 81001; 85025; 85651; 86140; 87077; 87086; 87186